=== PATIENT | female | born 1970 | race Caucasian/White ===

== ENCOUNTER → 2024-11-11 15:37 | Outpatient (BNVA) | payer MEDICAID, SELFPAY | PROVIDERS: PCP Registered Nurse; Visit Provider Orthopaedic Surgery | DX: M54.2 Cervicalgia (principal); M54.9 Dorsalgia, unspecified | CPT/HCPCS: 72050; 72110 ==

== ENCOUNTER 2025-01-05 08:35 | Outpatient (RCR) | payer MEDICAID, SELFPAY | END 2025-01-09 12:31 | disposition home or self-care (01) | LOC: SPT 08:35 | PROVIDERS: PCP Registered Nurse; Visit Provider Orthopaedic Surgery | DX: M54.2 Cervicalgia (principal); G89.29 Other chronic pain | CPT/HCPCS: 97162 ==